=== PATIENT | female | born 1970 | race American Indian/Alaskan Native ===

== ENCOUNTER 2020-01-01 15:06 | Emergency (ER) | payer MEDICAID ==
[2020-01-01 15:17] VITALS: BP 138/89
--- NOTE | 2020-01-01 15:49 | Emergency Department Report ---
Vomiting/Diarrhea - HPI Chief Complaint: Nausea/Vomiting/Diarrhea Stated Complaint: ABD PAINS Duration: 2 Days Nausea/Vomiting Severity: Moderate Diarrhea Severity: Moderate Symptoms: Yes Watery Diarrhea, Yes Recent Unusual Foods, No Bloody diarrhea, No Fever, No Able to Tolerate Fluids, No Recent use of Antibiotics, No Family w/ Similar Symptoms, No Contacts w/ Similar Symptoms, No Rash, No Hematuria, No Recent URI Symptoms Other History: 49-year-old -Thai female presents to the emergency room complaining of nausea vomiting diarrhea after eating fish and coleslaw from a fast food restaurant [place] 2 days ago. Patient states that she is not able to hold any food down water and has been having watery stools. Patient denies any fever chills she does admit to some epigastric abdominal pain. Patient reports a past medical history of congestive heart failure and a history of breast cancer in remission and has had a partial hysterectomy. She is allergic to penicillin and erythromycin. ED Review of Systems ROS: Stated complaint: ABD PAINS Other details as noted in HPI ED Past Medical Hx - Past Medical History Previous Medical History?: Yes Hx Congestive Heart Failure: Yes Additional medical history: Remission from breast CA x 1 1/2 years. - Surgical History Past Surgical History?: Yes Additional Surgical History: Partial hysterectomy - Social History Smoking Status: Former Smoker Substance Use Type: None - Medications Home Medications: Home Medications Medication Instructions Recorded Confirmed Last Taken Type Dicyclomine [Bentyl] 10 mg PO QID #20 capsule 01/01/20 Unknown Rx Loperamide HCl [Imodium A-D] 2 mg PO Q2H PRN #8 capsule 01/01/20 Unknown Rx Ondansetron HCl [Zofran] 4 mg PO Q8H PRN #12 tablet 01/01/20 Unknown Rx Vomiting Diarrhea Exam - Exam General: Vital signs noted. No distress. Alert and acting appropriately. HEENT: Yes Moist Mucous Membranes, No Pharyngeal Erythema, No Pharyngeal Exudates, No Rhinorrhea, No Conjuctival Injection, No Frontal Tenderness, No Maxillary Tenderness Neck: No Adenopathy, No Rigidity Lungs: Yes Clear Lung Sounds, Yes Good Air Exchange, No Wheezes, No Stridor, No Cough, No Nasal Flaring, No Retractions, No Use of Accessory Muscles Heart exam: Regular: Yes, Murmur: No, Tachycardia: No Abdomen: Tenderness: Yes (Epigastric) Skin exam: Rash: No, Edema: No, Normal turgor: Yes Neurologic: Alert and oriented, no deficits. Musculoskeletal: Unremarkable. ED Course Vital Signs 01/01/20 15:17 Temperature 98 F Pulse Rate 87 Respiratory 18 Rate Blood Pressure 138/89 [Right] O2 Sat by Pulse 98 Oximetry - Reevaluation(s) Reevaluation #1: 01/01/20 17:28 Patient reports she feels much better after having her medications. ED Medical Decision Making - Medical Decision Making 49-year-old -Thai female presents to the emergency room complaining of nausea vomiting diarrhea after eating fish and coleslaw from a fast food restaurant [place] 2 days ago. Patient states that she is not able to hold any food down water and has been having watery stools. Patient denies any fever chills she does admit to some epigastric abdominal pain. Patient reports a past medical history of congestive heart failure and a history of breast cancer in remission and has had a partial hysterectomy. She is allergic to penicillin and erythromycin. IV with normal saline Zofran IV 4 mg, famotidine 20 mg IV Bentyl 10 mg p.o. and Imodium 2 mg p.o. patient be reevaluated. Patient reports she feels much better she has not had any episodes of vomiting diarrhea abdominal pain and nausea has improved. Patient be discharged home with instructions to take Imodium 2 mg with next loose stool with a max of 8 mg per 24 hours. Patient can continue with the Zofran as needed every 8 hours as needed for nausea and vomiting. Patient be discharged home on Bentyl for abdominal spasms. Patient can follow-up with her primary care provider if her symptoms continue. She can return back to the emergency room for getting worse. Critical care attestation.: If time is entered above; I have spent that time in minutes in the direct care of this critically ill patient, excluding procedure time. ED Disposition Clinical Impression: Nausea and vomiting, Diarrhea Disposition: TO HOME OR SELFCARE Is pt being admited?: No Does the pt Need Aspirin: No Condition: Stable Instructions: Acute Nausea and Vomiting (ED), Loperamide (By mouth), Acute Diarrhea (ED) Additional Instructions: Please take medication as needed. Increase your fluid intake advance her diet as tolerated. Follow-up with your primary care provider if his symptoms persist. Prescriptions: Dicyclomine [Bentyl] 10 mg PO QID #20 capsule Loperamide HCl [Imodium A-D] 2 mg PO Q2H PRN #8 capsule PRN Reason: Diarrhea Ondansetron HCl [Zofran] 4 mg PO Q8H PRN #12 tablet PRN Reason: Nausea And Vomiting Referrals: PRIMARY CARE, [Primary Care Provider] - 3-5 Days Forms: Work/School Release Form(ED)
[2020-01-01] MEDS ORDERED: LOPERAMIDE 2 MG CAP PO ONE (15:50)
[2020-01-01] MEDS ORDERED: ONDANSETRON 4 MG/2 ML INJ IV ONE (15:50)
[2020-01-01] MEDS ORDERED: SODIUM CHLORIDE 0.9% 1000 ML 1,000 ML IV ONE (15:50)
[2020-01-01] MEDS ORDERED: DICYCLOMINE 10 MG/5 ML ORAL LIQD PO ONE (15:51)
== END 2020-01-01 17:51 | disposition home or self-care (01) ==
LOC: ED 15:06
DX: R11.2 Nausea with vomiting, unspecified (principal); R19.7 Diarrhea, unspecified; I50.9 Heart failure, unspecified; Z90.710 Acquired absence of both cervix and uterus; Z87.891 Personal history of nicotine dependence; Z79.899 Other long term (current) drug therapy; Z88.0 Allergy status to penicillin; Z88.1 Allergy status to other antibiotic agents
CPT/HCPCS: 96361; 96374; 99282; J2405; J7030

== ENCOUNTER 2021-08-26 13:04 | Emergency (ER) | payer MEDICAID ==
[2021-08-26 14:11] VITALS: BP 183/86
== END 2021-08-26 19:00 | disposition left against medical advice (07) ==
LOC: ED 13:04
DX: Z13.30 Encounter for screening examination for mental health and behavioral disorders, unspecified (principal); Z53.21 Procedure and treatment not carried out due to patient leaving prior to being seen by health care provider